=== PATIENT | female | born 1960 | race Caucasian/White ===

== ENCOUNTER 2025-04-25 02:54 | Inpatient (IN) | payer OTHER, MEDICAID ==
[2025-04-25 04:52] VITALS: BMI 32.3
[2025-04-25 07:15] LABS: #Basophils Less than 0.03 10x3/uL (0.0-0.2); #Eosinophils 0.03 10x3/uL (0.0-0.7); #Monocytes 0.62 10x3/uL (0.11-0.59); #Neutrophils 2.29 10x3/uL (1.40-6.50); %Basophils 0.4 % (0.0-1.0); %Eosinophils 0.7 % (0.0-10.0); %Lymphocytes 34.9 % (21.0-51.0); %Monocytes 13.5 % (0.0-10.0); %Neutrophils 49.8 % (42.0-75.0); Hematocrit 32.4 % (36.0-47.0); Hemoglobin 9.8 g/dL (12.0-16.0); Mean Corpuscular Hemoglobin 25.0 pg (27.0-31.0); Mean Corpuscular Volume 82.7 fL (78.0-98.0); Platelet Count 312 10x3/uL (130-400); Red Blood Cell (RBC) Count 3.92 mill/uL (4.20-5.40); White Blood Cell (WBC) Count 4.59 10x3/uL (4.8-10.8)
[2025-04-25 07:30] LABS: Anion Gap 21 mmol/L (10-20); BUN (Urea Nitrogen) 27 mg/dL (9.8-20.1); Calc. Creatinine Clearance 41 mL/min (70-130); Calcium 7.6 mg/dL (7.8-10.44); Carbon Dioxide 16 mmol/L (23-31); Chloride 105 mmol/L (98-107); Glucose 83 mg/dL (80-115); Magnesium 1.9 mg/dL (1.6-2.6); Potassium 4.6 mmol/L (3.5-5.1); Sodium 137 mmol/L (136-145)
[2025-04-25] MEDS ORDERED: hydrALAZINE 20 MG/ML VIAL SLOW IVP PRN (08:03)
[2025-04-25] MEDS: Electrolyte Replacement Protocol 1 EACH FS ONE (11:47)
[2025-04-25] MEDS: Pantoprazole 40 MG VIAL IVP SCH (12:38)
[2025-04-25] MEDS: Benzocaine 20% Spray 60 ML CAN PO PRN (12:42)
[2025-04-25] MEDS: PNEUMOC 20-VAL CONJ-DIP CRM/PF 0.5 ML SYRINGE IM ONE (13:02)
[2025-04-25] MEDS: Ondansetron PF 4 MG/2 ML Vial IVP PRN (16:36)
[2025-04-25 20:54] LABS: Anion Gap 20 mmol/L (10-20); BUN (Urea Nitrogen) 29 mg/dL (9.8-20.1); Calc. Creatinine Clearance 39 mL/min (70-130); Calcium 7.5 mg/dL (7.8-10.44); Carbon Dioxide 20 mmol/L (23-31); Chloride 104 mmol/L (98-107); Glucose 120 mg/dL (80-115); Potassium 4.6 mmol/L (3.5-5.1); Sodium 139 mmol/L (136-145)
[2025-04-26 05:21] LABS: #Basophils Less than 0.03 10x3/uL (0.0-0.2); #Eosinophils 0.07 10x3/uL (0.0-0.7); #Monocytes 0.45 10x3/uL (0.11-0.59); #Neutrophils 1.55 10x3/uL (1.40-6.50); %Basophils 0.3 % (0.0-1.0); %Eosinophils 2.1 % (0.0-10.0); %Lymphocytes 36.2 % (21.0-51.0); %Monocytes 13.7 % (0.0-10.0); %Neutrophils 47.1 % (42.0-75.0); Hematocrit 28.5 % (36.0-47.0); Hemoglobin 8.7 g/dL (12.0-16.0); Mean Corpuscular Hemoglobin 25.1 pg (27.0-31.0); Mean Corpuscular Volume 82.1 fL (78.0-98.0); Platelet Count 262 10x3/uL (130-400); Red Blood Cell (RBC) Count 3.47 mill/uL (4.20-5.40); White Blood Cell (WBC) Count 3.29 10x3/uL (4.8-10.8)
[2025-04-26 05:51] LABS: ALT (SGPT) 14 U/L (Less than 34); AST (SGOT) 28 U/L (11-34); Albumin 2.7 g/dL (3.1-4.5); Alkaline Phosphatase 81 U/L (40-110); Anion Gap 14 mmol/L (10-20); BUN (Urea Nitrogen) 30 mg/dL (9.8-20.1); Bilirubin, Total 0.4 mg/dL (0.3-1.2); Calc. Creatinine Clearance 37 mL/min (70-130); Calcium 7.0 mg/dL (7.8-10.44); Carbon Dioxide 24 mmol/L (23-31); Chloride 101 mmol/L (98-107); Globulin 3.5 g/dL (2.4-3.5); Glucose 152 mg/dL (80-115); Magnesium 1.8 mg/dL (1.6-2.6); Potassium 4.0 mmol/L (3.5-5.1); Sodium 135 mmol/L (136-145)
[2025-04-26] MEDS: Pantoprazole 40 MG VIAL IVP SCH (09:26)
[2025-04-27 07:23] LABS: Hematocrit 29.2 % (36.0-47.0); Hemoglobin 9.0 g/dL (12.0-16.0); Mean Corpuscular Hemoglobin 25.0 pg (27.0-31.0); Mean Corpuscular Volume 81.1 fL (78.0-98.0); Platelet Count 266 10x3/uL (130-400); Red Blood Cell (RBC) Count 3.60 mill/uL (4.20-5.40); White Blood Cell (WBC) Count 5.06 10x3/uL (4.8-10.8)
[2025-04-27 07:41] LABS: Anion Gap 15 mmol/L (10-20); BUN (Urea Nitrogen) 31 mg/dL (9.8-20.1); Calc. Creatinine Clearance 41 mL/min (70-130); Calcium 7.0 mg/dL (7.8-10.44); Carbon Dioxide 27 mmol/L (23-31); Chloride 99 mmol/L (98-107); Glucose 116 mg/dL (80-115); Potassium 3.7 mmol/L (3.5-5.1); Sodium 137 mmol/L (136-145)
[2025-04-27 07:48] LABS: INR-International Normal Ratio 1.2; Prothrombin Time 14.8 sec (12.0-14.7)
[2025-04-27] MEDS ORDERED: Lidocaine 1% PF 5 ML VIAL ONE (08:36)
[2025-04-27] MEDS ORDERED: Sodium Bicarbonate 2.5 MEQ/5 ML SDV ONE (08:36)
[2025-04-27] MEDS: Phenol 177 ML BOT PO PRN (08:52)
[2025-04-27 11:52] VITALS: BMI 32.1
[2025-04-27 12:43] LABS: RBC Count-Automated (BF) 172 /cu.mm; WBC/Nucleated-Auto (BF) 124 /cu.mm
[2025-04-27 13:30] LABS: BF Segmented Neutrophils 1 %; Cell Count Non Hematic 79 %
[2025-04-28] MEDS ORDERED: MD-Gastroview 120 ML BOT ONE (10:15)
[2025-04-29 04:45] LABS: Hematocrit 32.7 % (36.0-47.0); Hemoglobin 9.7 g/dL (12.0-16.0); Mean Corpuscular Hemoglobin 24.9 pg (27.0-31.0); Mean Corpuscular Volume 84.1 fL (78.0-98.0); Platelet Count 293 10x3/uL (130-400); Red Blood Cell (RBC) Count 3.89 mill/uL (4.20-5.40); White Blood Cell (WBC) Count 5.91 10x3/uL (4.8-10.8)
[2025-04-29 05:04] LABS: ALT (SGPT) 9 U/L (Less than 34); AST (SGOT) 23 U/L (11-34); Albumin 2.5 g/dL (3.1-4.5); Alkaline Phosphatase 82 U/L (40-110); Anion Gap 25 mmol/L (10-20); BUN (Urea Nitrogen) 27 mg/dL (9.8-20.1); Bilirubin, Direct 0.1 mg/dL (0.1-0.3); Bilirubin, Total 0.2 mg/dL (0.3-1.2); Calc. Creatinine Clearance 54 mL/min (70-130); Calcium 7.5 mg/dL (7.8-10.44); Carbon Dioxide 17 mmol/L (23-31); Chloride 104 mmol/L (98-107); Glucose 135 mg/dL (80-115); Potassium 3.5 mmol/L (3.5-5.1); Sodium 142 mmol/L (136-145)
[2025-04-29 10:06] LABS: Magnesium 2.0 mg/dL (1.6-2.6)
[2025-04-29] MEDS: Potassium Bicarbonate/Cit Ac 20 MEQ TAB PO SCH (10:36)
[2025-04-29] MEDS: Metoprolol Succinate XL 50 MG ER.TAB PO SCH (17:16)
[2025-04-29] MEDS: Heparin 5,000 UNITS/ML VIAL SC SCH (20:18)
[2025-04-30 05:59] LABS: Anion Gap 15 mmol/L (10-20); BUN (Urea Nitrogen) 19 mg/dL (9.8-20.1); Calc. Creatinine Clearance 70 mL/min (70-130); Calcium 7.1 mg/dL (7.8-10.44); Carbon Dioxide 25 mmol/L (23-31); Chloride 103 mmol/L (98-107); Glucose 148 mg/dL (80-115); Magnesium 1.7 mg/dL (1.6-2.6); Potassium 3.4 mmol/L (3.5-5.1); Sodium 140 mmol/L (136-145)
[2025-04-30 06:50] LABS: #Basophils 0.04 10x3/uL (0.0-0.2); #Eosinophils 0.16 10x3/uL (0.0-0.7); #Monocytes 0.43 10x3/uL (0.11-0.59); #Neutrophils 3.29 10x3/uL (1.40-6.50); %Basophils 0.7 % (0.0-1.0); %Eosinophils 3.0 % (0.0-10.0); %Lymphocytes 25.1 % (21.0-51.0); %Monocytes 8.0 % (0.0-10.0); %Neutrophils 61.2 % (42.0-75.0); Hematocrit 29.5 % (36.0-47.0); Hemoglobin 9.1 g/dL (12.0-16.0); Mean Corpuscular Hemoglobin 24.9 pg (27.0-31.0); Mean Corpuscular Volume 80.8 fL (78.0-98.0); Platelet Count 324 10x3/uL (130-400); Red Blood Cell (RBC) Count 3.65 mill/uL (4.20-5.40); White Blood Cell (WBC) Count 5.38 10x3/uL (4.8-10.8)
[2025-04-30] MEDS ORDERED: Nitroglycerin 0.4 MG TAB (25 Tab Bottle) SL PRN (09:00)
[2025-04-30] MEDS: Metoprolol Succinate XL 50 MG ER.TAB PO SCH (09:54)
[2025-04-30] MEDS: Sertraline 25 MG TAB PO SCH (09:54)
[2025-04-30] MEDS: Magnesium Sulfate In Water 4 GM in Premix 1 BAG IVPB SCH (09:58)
[2025-04-30] MEDS: Potassium Bicarbonate/Cit Ac 20 MEQ TAB PO SCH ×2 (09:58→17:21)
[2025-04-30] MEDS: Acetaminophen 325 MG TAB PO PRN (20:26)
[2025-05-01 05:56] LABS: Anion Gap 13 mmol/L (10-20); BUN (Urea Nitrogen) 17 mg/dL (9.8-20.1); Calc. Creatinine Clearance 67 mL/min (70-130); Calcium 7.6 mg/dL (7.8-10.44); Carbon Dioxide 27 mmol/L (23-31); Chloride 99 mmol/L (98-107); Glucose 113 mg/dL (80-115); Magnesium 2.3 mg/dL (1.6-2.6); Potassium 4.1 mmol/L (3.5-5.1); Sodium 135 mmol/L (136-145)
[2025-05-01] MEDS: Albumin 25% 25 GM (100 mL) BOT IVPB SCH (12:37)
[2025-05-01] MEDS ORDERED: Lidocaine 1% w/Epinephrine 1:100K 20 ML VIAL ONE (14:40)
[2025-05-01] MEDS ORDERED: Sodium Bicarbonate 2.5 MEQ/5 ML SDV ONE (14:41)
[2025-05-01 22:20] LABS: Bacteria/HPF 2+ HPF (None Seen); Glucose, Urine (Dipstick) Normal (Negative); Leukocyte Negative Leu/uL (Negative); Protein, Urine (Dipstick) 10 mg/dL (Neg-Trace); Specific Gravity, Urine 1.016 (1.002-1.036); WBC/HPF 0-3 HPF (0-3)
[2025-05-02 05:43] LABS: ALT (SGPT) 54 U/L (Less than 34); AST (SGOT) 130 U/L (11-34); Albumin 2.9 g/dL (3.1-4.5); Alkaline Phosphatase 115 U/L (40-110); Anion Gap 13 mmol/L (10-20); BUN (Urea Nitrogen) 14 mg/dL (9.8-20.1); Bilirubin, Total 0.3 mg/dL (0.3-1.2); Calc. Creatinine Clearance 83 mL/min (70-130); Calcium 7.6 mg/dL (7.8-10.44); Carbon Dioxide 26 mmol/L (23-31); Chloride 102 mmol/L (98-107); Globulin 2.6 g/dL (2.4-3.5); Glucose 110 mg/dL (80-115); Lipase 179 U/L (8-78); Magnesium 1.8 mg/dL (1.6-2.6); Potassium 3.8 mmol/L (3.5-5.1); Sodium 137 mmol/L (136-145)
[2025-05-02 06:04] LABS: Nucleated RBC (Manual Ct) 4 % (0); Other Cell Types 2.9; Plasma Cells 1 % (0-0); Platelet Adequacy Comment Platelets Normal; Smudge Cells 16.7 %
[2025-05-02 06:09] LABS: Hematocrit 24.6 % (36.0-47.0); Hemoglobin 7.5 g/dL (12.0-16.0); Mean Corpuscular Hemoglobin 24.7 pg (27.0-31.0); Mean Corpuscular Volume 80.9 fL (78.0-98.0); Platelet Count 190 10x3/uL (130-400); Red Blood Cell (RBC) Count 3.04 mill/uL (4.20-5.40); White Blood Cell (WBC) Count 4.73 10x3/uL (4.8-10.8)
[2025-05-02] MEDS ORDERED: Magnesium 2 GM/50 ML(in water) 2 GM in Premix 1 BAG IVPB SCH (11:00)
[2025-05-02] MEDS: Magnesium Oxide 400 MG TAB PO SCH (13:18)
[2025-05-02] MEDS: Potassium Bicarbonate/Cit Ac 20 MEQ TAB PO SCH (13:19)
[2025-05-02 13:21] VITALS: BP 120/79; TEMP 97.8
[2025-05-03] MEDS ORDERED: Magnesium Oxide 400 MG TAB PO SCH (09:00)
== END 2025-05-02 16:39 | disposition home or self-care (01) | DRG 389 ==
LOC: OBS 04:05 → OBSVTOIN 04-26 08:12
PROVIDERS: ADMIT Internal Medicine; ATTEND Family Medicine
PROC: 0D9670Z Drainage of Stomach with Drainage Device, Via Natural or Artificial Opening (ICD-10-PCS; 2025-04-25)
PROC: 0W9G3ZZ Drainage of Peritoneal Cavity, Percutaneous Approach (ICD-10-PCS; principal; 2025-04-27)
PROC: 0W9G3ZZ Drainage of Peritoneal Cavity, Percutaneous Approach (ICD-10-PCS; 2025-05-01)
DX: K56.609 Unspecified intestinal obstruction, unspecified as to partial versus complete obstruction (principal); E87.1 Hypo-osmolality and hyponatremia; E87.20 Acidosis, unspecified; N17.9 Acute kidney failure, unspecified; I47.19 Other supraventricular tachycardia; R18.8 Other ascites; I12.9 Hypertensive chronic kidney disease with stage 1 through stage 4 chronic kidney disease, or unspecified chronic kidney disease; C50.912 Malignant neoplasm of unspecified site of left female breast; F17.210 Nicotine dependence, cigarettes, uncomplicated; E87.6 Hypokalemia; E83.42 Hypomagnesemia; R19.7 Diarrhea, unspecified; D64.81 Anemia due to antineoplastic chemotherapy; E66.9 Obesity, unspecified; J44.9 Chronic obstructive pulmonary disease, unspecified; F41.9 Anxiety disorder, unspecified; N18.30 Chronic kidney disease, stage 3 unspecified; Z88.0 Allergy status to penicillin; Z88.5 Allergy status to narcotic agent; Z90.11 Acquired absence of right breast and nipple; Z92.3 Personal history of irradiation; Z90.710 Acquired absence of both cervix and uterus; Z90.49 Acquired absence of other specified parts of digestive tract; Z98.890 Other specified postprocedural states; Z68.32 Body mass index [BMI] 32.0-32.9, adult; Z79.899 Other long term (current) drug therapy; Z79.51 Long term (current) use of inhaled steroids
CPT/HCPCS: 36415; 49083; 71045; 74018; 74250; 76705; 80048; 80053; 80076; 81001; 82042; 83605; 83690; 83735; 84100; 84157; 85025; 85027; 85060; 85610; 88112; 88305; 89051; 93306; 96374; 96375; 96376; G0378; J1644; J2470; J2550; J3475; J7070; J7120; P9047; Q0162; Q9963